=== PATIENT | male | born 1995 | race Caucasian/White ===

== ENCOUNTER 2021-09-19 02:30 | Emergency (ER) | payer SELFPAY | END 2021-09-19 03:40 | disposition left against medical advice (07) | LOC: ER1 02:30 | DX: S01.511A Laceration without foreign body of lip, initial encounter (principal); F17.200 Nicotine dependence, unspecified, uncomplicated; X58.XXXA Exposure to other specified factors, initial encounter | CPT/HCPCS: 99283 ==